=== PATIENT | female | born 1985 | race Caucasian/White ===

== ENCOUNTER 2019-01-01 21:50 | Emergency (ER) | payer MEDICAID, OTHER ==
[2019-01-01] MEDS ORDERED: HYDROCODONE/APAP 5/325MG TABLET PO ONE (22:25)
[2019-01-01] MEDS ORDERED: AMOXICILLIN/POTASSIUM CLAV 875MG/125MG TABLET PO ONE (22:25)
[2019-01-01] MEDS ORDERED: RABIES VACCINE (RABAVERT) 2.5 IU VIAL IM ONE (22:39)
[2019-01-01] MEDS ORDERED: RABIES IMMUNE GLOBULIN 150 UNIT/ML IM ONE (22:39)
--- NOTE | 2019-01-01 22:50 | Emergency Department Record ---
History of Present Illness - General Chief Complaint: Animal Bite Stated Complaint: CAT BITE Time Seen by Provider: 01/01/19 22:06 Source: Patient Mode of Arrival: Ambulatory Limitations: No limitations - History of Present Illness Initial Comments: pt was bitten multiple times by her parents cat. pts mother has dementia,her father has . pt was picking the cat up to take it to a snf when it attacked her. rabies status is unknown. cat cannot be found because pts sister wont tell her where it is. animal control has been notified. pt is choosing to start rabies as she states there is no way to find out the status of the cat MD Complaint: Animal bite Onset/Timin -: Minutes(s) Left: Forearm, Right: Forearm Animal: Cat Description: Household pet Mechanism: Bite, Scratch Context: Other Associated Symptoms: Bleeding - Related Data Previous Rx's Medication Instructions Recorded Cyclobenzaprine HCl [Flexeril] 5 mg PO TID PRN #15 tab 04/16/16 Amoxicillin/Potassium Clav 1 each PO BID #20 tablet 01/01/19 [Augmentin 875Mg/125Mg] Allergies Allergy/AdvReac Type Severity Reaction Status Date / Time Sulfa (Sulfonamide Allergy ANAPHYLAXIS Verified 01/01/19 22:03 Antibiotics) sulfamethoxazole Allergy ANAPHYLAXIS Verified 01/01/19 22:03 [From Bactrim] trimethoprim [From Bactrim] Allergy ANAPHYLAXIS Verified 01/01/19 22:03 Travel Screening - Travel/Exposure Within Last 30 Days Have you traveled within the last 30 days?: No - Travel/Exposure Within Last Year Have you traveled outside the [place] in the last year?: No - Additonal Travel Details Have you been exposed to anyone with a communicable illness?: No Review of Systems Reviewed: No additional complaints except as noted below Constitutional: Reports: As per HPI. Denies: Chills, Fever, Malaise, Night sweats, Weakness, Weight change Eyes: Reports: As per HPI. Denies: Eye discharge, Eye pain, Photophobia, Vision change ENT: Reports: As per HPI. Denies: Congestion, Dental pain, Ear pain, Epistaxis, Hearing loss, Throat pain Respiratory: Reports: As per HPI. Denies: Cough, Dyspnea, Hemoptysis, Stridor, Wheezes Cardiovascular: Reports: As per HPI. Denies: Arrhythmia, Chest pain, Dyspnea on exertion, Edema, Murmurs, Orthopnea, Palpitations, Paroxysmal nocturnal dyspnea, Rheumatic Fever, Syncope Endocrine: Reports: As per HPI. Denies: Fatigue, Heat or cold intolerance, Polydipsia, Polyuria Gastrointestinal: Reports: As per HPI. Denies: Abdominal pain, Constipation, Diarrhea, Hematemesis, Hematochezia, Melena, Nausea, Vomiting Genitourinary: Reports: As per HPI. Denies: Abnormal menses, Discharge, Dyspareunia, Dysuria, Frequency, Hematuria, Incontinence, Retention, Urgency Musculoskeletal: Reports: As per HPI. Denies: Arthralgia, Back pain, Gout, Joint swelling, Myalgia, Neck pain Skin: Reports: As per HPI. Denies: Bruising, Change in color, Change in hair/nails, Lesions, Pruritus, Rash Neurological: Reports: As per HPI. Denies: Abnormal gait, Confusion, Headache, Numbness, Paresthesias, Seizure, Tingling, Tremors, Vertigo, Weakness Psychiatric: Reports: As per HPI. Denies: Anxiety, Auditory hallucinations, Depression, Homicidal thoughts, Suicidal thoughts, Visual hallucinations Hematological/Lymphatic: Reports: As per HPI. Denies: Anemia, Blood Clots, Easy bleeding, Easy bruising, Swollen glands Past Medical History - SOCIAL HISTORY Smoking Status: Current every day smoker Alcohol Use: Rare Drug Use: None - RESPIRATORY Hx Respiratory Disorders: No - CARDIOVASCULAR Hx Cardio Disorders: No - NEURO Hx Neuro Disorders: No - GI Hx GI Disorders: No - Hx Genitourinary Disorders: No Comment:: "angry bladder" urgency - ENDOCRINE Hx Endocrine Disorders: No - MUSCULOSKELETAL Hx Musculoskeletal Disorders: No - PSYCH Hx Psych Problems: Yes Hx Anxiety: Yes Hx Depression: Yes - HEMATOLOGY/ONCOLOGY Hx Hematology/Oncology Disorders: No Family Medical History Any Significant Family History?: No Hx Cancer: Grandparents Physical Exam - General General Appearance: Alert, Oriented x3, Cooperative, Mild distress - Head Head exam: Normal inspection - Eye Eye exam: Normal appearance, PERRL, EOMI Pupils: Normal accommodation - ENT ENT exam: Normal exam, Mucous membranes moist, Normal external ear exam, Normal orophraynx Ear exam: Normal external inspection. negative: External canal tenderness Nasal Exam: Normal inspection. negative: Discharge, Sinus tenderness Mouth exam: Normal external inspection, Tongue normal Teeth exam: Normal inspection. negative: Dental caries Throat exam: Normal inspection. negative: Tonsillar erythema, Tonsillar exudate - Neck Neck exam: Normal inspection, Full ROM. negative: Tenderness - Respiratory Respiratory exam: Normal lung sounds bilaterally. negative: Respiratory distress - Cardiovascular Cardiovascular Exam: Regular rate, Normal rhythm, Normal heart sounds - GI/Abdominal GI/Abdominal exam: Soft, Normal bowel sounds. negative: Tenderness - Rectal Rectal exam: Deferred - exam: Deferred - Extremities Extremities exam: Normal inspection, Full ROM, Normal capillary refill. negative: Tenderness - Back Back exam: Reports: Normal inspection, Full ROM. Denies: Muscle spasm, Rash noted, Tenderness - Neurological Neurological exam: Alert, CN II-XII intact, Normal gait, Oriented X3 - Psychiatric Psychiatric exam: Normal affect, Normal mood - Skin Skin exam: Dry, Intact, Normal color, Warm Type of lesion: abrasion, Bite/sting, Laceration Course Vital Signs 01/01/19 21:55 Temperature 98.2 F Pulse Rate [ 81 Pulse Ox Probe] Respiratory 20 Rate Blood Pressure 126/79 [Left Arm] Pulse Ox 100 w - Reevaluation(s) Reevaluation #1: 01/01/19 22:53 area was thoroughly cleaned and rig and vaccine given per pts wishes since she believes status of cat cannot be found Reevaluation #2: 01/01/19 22:58 xray neg Disposition Disposition: Discharge Clinical Impression: Cat bite involving extremity, Rabies exposure Disposition: Home, Self-Care Condition: (1) Good Instructions: Animal Bite (ED), Rabies Vaccine (ED), Rabies Immune Globulin (By injection) Additional Instructions: follow up with family doctor. return sooner if worse. return on days 3,7,14 for rabies vaccine Prescriptions: Amoxicillin/Potassium Clav [Augmentin 875Mg/125Mg] 1 each PO BID #20 tablet Forms: Patient Portal Access, Return to Work/School Quality - Quality Measures Quality Measures: N/A - Blood Pressure Screening Does Patient Have Any of the Following: No Blood Pressure Classification: Pre-Hypertensive BP Reading Systolic Measurement: 126 Diastolic Measurement: 79 Screening for High Blood Pressure: < Pre-Hypertensive BP, F/U Documented > [G8950] Pre-Hypertensive Follow-up Interventions: Follow-up with rescreen every year.
--- NOTE | 2019-01-06 06:52 | RADIOLOGY REPORT ---
EXAM: FOREARM, RIGHT HISTORY: MULTIPLE CAT BITES. COMPARISON: Right elbow 04/16/16. TECHNIQUE: Two views of the right forearm. FINDINGS: No clear cortical or trabecular disruption identified. No dislocation. No elbow effusion. No persistent radiopaque foreign body visualized. IMPRESSION: NO ACUTE ABNORMALITY EVIDENT RADIOGRAPHICALLY AT THIS TIME. JOB NUMBER: [id number] MTDD
== END 2019-01-01 23:53 | disposition home or self-care (01) ==
LOC: ER 21:50
DX: S41.152A Open bite of left upper arm, initial encounter (principal); S41.151A Open bite of right upper arm, initial encounter; W55.01XA Bitten by cat, initial encounter; Z20.3 Contact with and (suspected) exposure to rabies; F17.210 Nicotine dependence, cigarettes, uncomplicated
CPT/HCPCS: 90375; 90675; 96372; 99283; 99284

== ENCOUNTER 2019-03-11 20:25 | Emergency (ER) | payer OTHER ==
[2019-03-11] MEDS ORDERED: HYDROCODONE/APAP 5/325MG TABLET PO ONE (20:35)
--- NOTE | 2019-03-11 20:41 | Emergency Department Record ---
History of Present Illness - General Chief complaint: Female Urogenital Problem Stated complaint: BLOOD IN URINE Time Seen by Provider: 03/11/19 20:27 Source: Patient Mode of Arrival: Ambulatory Limitations: No limitations - History of Present Illness Initial comments: 33 yo female presents with blood in the urine on and off over the last 1.5 weeks. She has some flank pain at times as well. No fever. No retention. No burning or frequency. She reports a history of the same in the past with a workup with urology in [place]. She had cystoscopy at that time. No formal diagnosis. No history of renal stones. No cancer. No clots in the urine. MD Complaint: Dysuria, Other (Hematuria) -: Week(s) (1.5) Location: Other Radiation: R flank Severity: Moderate Severity scale (1-10): 7 Quality: Aching Consistency: Intermittent Improves with: None Worsens with: None Patient : No Associated Symptoms: Denies other symptoms - Related Data Home Medications Medication Instructions Recorded Confirmed Last Taken No Home Med [NO HOME MEDS] 03/11/19 03/11/19 Unknown Allergies Allergy/AdvReac Type Severity Reaction Status Date / Time Sulfa (Sulfonamide Allergy ANAPHYLAXIS Verified 03/11/19 20:35 Antibiotics) sulfamethoxazole Allergy ANAPHYLAXIS Verified 03/11/19 20:35 [From Bactrim] trimethoprim [From Bactrim] Allergy ANAPHYLAXIS Verified 03/11/19 20:35 Travel Screening - Travel/Exposure Within Last 30 Days Have you traveled within the last 30 days?: No - Travel/Exposure Within Last Year Have you traveled outside the [place] in the last year?: No - Additonal Travel Details Have you been exposed to anyone with a communicable illness?: No - Travel Symptoms Symptom Screening: None Review of Systems Constitutional: Denies: Chills, Fever, Malaise, Weakness Eyes: Denies: Eye discharge, Eye pain, Photophobia, Vision change ENT: Reports: Throat pain. Denies: Congestion Respiratory: Reports: Cough. Denies: Dyspnea, Hemoptysis, Stridor, Wheezes Cardiovascular: Denies: Chest pain, Dyspnea on exertion, Palpitations, Syncope Endocrine: Denies: Fatigue, Polydipsia, Polyuria Gastrointestinal: Denies: Abdominal pain, Diarrhea, Nausea, Vomiting Genitourinary: Reports: Hematuria. Denies: Dysuria, Frequency, Retention, Urgency Musculoskeletal: Reports: Back pain. Denies: Arthralgia, Myalgia Skin: Denies: Bruising, Change in color, Rash Neurological: Denies: Headache Psychiatric: Denies: Anxiety Hematological/Lymphatic: Denies: Easy bleeding, Easy bruising Past Medical History - SOCIAL HISTORY Smoking Status: Current every day smoker Alcohol Use: Occasional Drug Use: None - RESPIRATORY Hx Respiratory Disorders: No - CARDIOVASCULAR Hx Cardio Disorders: No - NEURO Hx Neuro Disorders: No - GI Hx GI Disorders: No - Hx Genitourinary Disorders: Yes Comment:: "angry bladder" urgency, renal insufficiency. - ENDOCRINE Hx Endocrine Disorders: No - MUSCULOSKELETAL Hx Musculoskeletal Disorders: Yes - PSYCH Hx Psych Problems: Yes Hx Anxiety: Yes Hx Depression: Yes - HEMATOLOGY/ONCOLOGY Hx Hematology/Oncology Disorders: No Family Medical History Any Significant Family History?: Yes Hx Cancer: Grandparents Physical Exam - General General Appearance: Alert, Oriented x3, Cooperative, No acute distress Limitations: No limitations - Head Head exam: Atraumatic, Normocephalic, Normal inspection - Eye Eye exam: Normal appearance. negative: Conjunctival injection, Scleral icterus - ENT ENT exam: Normal exam, Mucous membranes moist, Normal orophraynx. negative: Mucous membranes dry Ear exam: Normal external inspection Nasal Exam: Normal inspection Mouth exam: Normal external inspection Teeth exam: Normal inspection Throat exam: Normal inspection. negative: Tonsillar erythema, Tonsillomegaly, Tonsillar exudate, R peritonsillar mass, L peritonsillar mass - Neck Neck exam: Normal inspection, Full ROM, Lymphadenopathy (small left upper anterior cervical node, soft and mobile) - Respiratory Respiratory exam: Normal lung sounds bilaterally. negative: Accessory muscle use, Decreased breath sounds, Prolonged expiratory, Respiratory distress, Rhonchi, Stridor, Wheezes - Cardiovascular Cardiovascular Exam: Regular rate, Normal rhythm, Normal heart sounds. negative: Diastolic murmur, Systolic murmur Peripheral Pulses: 2+: Radial (R), Radial (L) - GI/Abdominal GI/Abdominal exam: Soft. negative: Tenderness - Rectal Rectal exam: Deferred - exam: Deferred - Extremities Extremities exam: Normal inspection - Back Back exam: Reports: CVA tenderness (R) (mild). Denies: CVA tenderness (L), Muscle spasm, Paraspinal tenderness, Tenderness - Neurological Neurological exam: Alert, Oriented X3 - Psychiatric Psychiatric exam: Normal affect, Normal mood. negative: Agitated, Anxious - Skin Skin exam: Dry, Intact, Normal color, Warm Course Vital Signs 03/11/19 20:27 Temperature 98.4 F Pulse Rate 78 Respiratory 20 Rate Blood Pressure 138/99 Pulse Ox 100 Reviewed. No abnormalities - Reevaluation(s) Reevaluation #1: 03/11/19 20:56 The CBC is normal 03/11/19 20:57 The UA is negative. No blood or signs of infection The HCG is negative The vitals are normal. The labs are normal. I discussed with her imaging options. I do not recommend CT at this time given the normal findings. I recommend a return during the day or follow up with PCP for a renal US if the the pain persists. We discussed radiation exposure risk and benefits. Risk outweighs benefit currently. US without radiation exposure is recommended. 03/11/19 21:16 BMP is normal We discussed follow up, reasons to return, the labs and UA ( a copy of provided). Medical Decision Making - Lab Data Result diagrams: 03/11/19 20:45 03/11/19 20:45 Disposition Disposition: Discharge Clinical Impression: Hematuria Qualifiers: Hematuria type: unspecified type Qualified Code(s): R31.9 - Hematuria, unspecified Disposition: Home, Self-Care Condition: (1) Good Instructions: Hematuria (ED) Additional Instructions: Call for a new family doctor for the next available follow up appointment Return to the ER for a recheck if worse, any new concerns or questions If the pain persists return for re-evaluation and possible renal ultrasound Referrals: NITESH PIMENTEL [MEDICAL DOCTOR] - Forms: Patient Portal Access Time of Disposition: 21:00 Quality - Quality Measures Quality Measures: N/A - Blood Pressure Screening Does Patient Have Any of the Following: No Blood Pressure Classification: Hypertensive Reading Systolic Measurement: 138 Diastolic Measurement: 99 Screening for High Blood Pressure: < Pre-Hypertensive BP, F/U Documented > [G8950] Pre-Hypertensive Follow-up Interventions: Referral to alternative/primary care provider.
[2019-03-11 20:51] LABS: ABSOLUTE NEUTROPHIL COUNT 5.74; BASO % 0.3 % (0-6); EOS % 2.4 % (0-6); GRAN % 58.5 % (47-80); HEMATOCRIT 41.9 % (35.0-47.0); LYMPH % 32.1 % (16-45); MEAN CELL VOLUME 81.7 fl (81-97); MEAN CORPUSCULAR HEMOGLOBIN 27.3 pg (27-33); MEAN CORPUSCULAR HGB CONC 33.4 g/dl (32-36); MEAN PLATELET VOLUME 9.8 fl (7.4-10.4); MONO % 6.7 % (0-9); PLATELET COUNT 317 K/uL (130-400); RED BLOOD COUNT 5.13 M/uL (3.80-5.40); RED CELL DISTRIBUTION WIDTH 13.2 % (11.5-14.5); WHITE BLOOD COUNT W/O DIFF 9.8 K/uL (4.2-12.2)
[2019-03-11 20:53] LABS: URINE APPEARANCE CLEAR; URINE BILIRUBIN NEGATIVE (NEGATIVE); URINE BLOOD NEGATIVE (NEGATIVE); URINE COLOR YELLOW; URINE GLUCOSE (UA) NEGATIVE (NEGATIVE); URINE KETONE NEGATIVE (NEGATIVE); URINE LEUKOCYTE ESTERASE NEGATIVE (NEGATIVE); URINE NITRITE NEGATIVE (NEGATIVE); URINE PROTEIN NEGATIVE (NEGATIVE); URINE UROBILINOGEN 0.2 E.U./dL (0.20 - 1.00)
[2019-03-11 20:56] LABS: HCG,QUALITATIVE URINE NEGATIVE (NEGATIVE)
[2019-03-11 21:07] LABS: BLOOD UREA NITROGEN 9 mg/dL (6-20); CREATININE 0.5 mg/dL (0.5-0.9); EST GLOMERULAR FILTRATION RATE > 60 mL/min
[2019-03-11 21:10] LABS: GLUCOSE,RANDOM 115 mg/dL (74-109)
== END 2019-03-11 21:24 | disposition home or self-care (01) ==
LOC: ER 20:25
DX: R31.9 Hematuria, unspecified (principal); R30.0 Dysuria; F17.210 Nicotine dependence, cigarettes, uncomplicated
CPT/HCPCS: 80048; 81003; 81025; 85025; 99284

== ENCOUNTER 2019-04-08 17:06 | Emergency (ER) | payer SELFPAY ==
[2019-04-08] MEDS ORDERED: CYCLOBENZAPRINE 10MG TABLET PO ONE (17:17)
[2019-04-08] MEDS ORDERED: HYDROCODONE/APAP 5/325MG TABLET PO ONE (17:17)
[2019-04-08] MEDS ORDERED: KETOROLAC 30 MG/ML VIAL IM ONE (17:17)
--- NOTE | 2019-04-08 17:24 | Emergency Department Record ---
History of Present Illness - General Chief Complaint: Back Pain/Injury Stated Complaint: BACK PAIN Time Seen by Provider: 04/08/19 17:16 Source: Patient, Family Mode of Arrival: Ambulatory Limitations: No limitations - History of Present Illness Initial Comments: 33 yo female presents with low back pain since yesterday. She states she works at the [employer]. She was lifting a 150 pound package and felt a pain in her low back. The pain is mostly mid line and low. No numbness, weakness, or radiating pain down the leg. She has had sciatica like symptoms in the past but denies any since the injury lifting. No other recent illness. No changes in bowel or bladder function. No history of back surgery. She did have XR's 04/16/16 demonstrating a mild stable L1 wedging. No current PCP MD Complaint: Back pain, Back injury Onset/Timin -: Days(s) Similar Symptoms Previously: No Place: Home Radiation: None Severity scale (1-10): 7 Quality: Aching, Sharp Consistency: Constant Improves With: None Worsens With: None Context: While lifting Associated Symptoms: Denies other symptoms - Related Data Previous Rx's Medication Instructions Recorded Cyclobenzaprine HCl [Flexeril] 10 mg PO TID #20 tablet 04/08/19 Methylprednisolone [Medrol Dose 4 mg PO DAILY #1 tab.ds.pk 04/08/19 Pack] Allergies Allergy/AdvReac Type Severity Reaction Status Date / Time Sulfa (Sulfonamide Allergy ANAPHYLAXIS Verified 03/11/19 20:35 Antibiotics) sulfamethoxazole Allergy ANAPHYLAXIS Verified 03/11/19 20:35 [From Bactrim] trimethoprim [From Bactrim] Allergy ANAPHYLAXIS Verified 03/11/19 20:35 Travel Screening - Travel/Exposure Within Last 30 Days Have you traveled within the last 30 days?: No Review of Systems Constitutional: Denies: Chills, Fever, Malaise, Weakness Eyes: Denies: Eye discharge ENT: Denies: Congestion, Throat pain Respiratory: Denies: Cough, Dyspnea, Wheezes Cardiovascular: Denies: Chest pain, Palpitations, Syncope Endocrine: Denies: Fatigue Gastrointestinal: Denies: Abdominal pain, Diarrhea, Nausea, Vomiting Genitourinary: Denies: Dyspareunia, Dysuria Musculoskeletal: Reports: Back pain, Myalgia. Denies: Arthralgia Skin: Denies: Bruising, Change in color, Rash Neurological: Denies: Abnormal gait, Headache, Numbness, Tingling, Tremors, Vertigo, Weakness Psychiatric: Denies: Anxiety Hematological/Lymphatic: Denies: Easy bleeding, Easy bruising Past Medical History - SOCIAL HISTORY Smoking Status: Current every day smoker - RESPIRATORY Hx Respiratory Disorders: No - CARDIOVASCULAR Hx Cardio Disorders: No - NEURO Hx Neuro Disorders: No - GI Hx GI Disorders: No - Hx Genitourinary Disorders: Yes Comment:: "angry bladder" urgency, renal insufficiency. - ENDOCRINE Hx Endocrine Disorders: No - MUSCULOSKELETAL Hx Musculoskeletal Disorders: Yes - PSYCH Hx Psych Problems: Yes Hx Anxiety: Yes Hx Depression: Yes - HEMATOLOGY/ONCOLOGY Hx Hematology/Oncology Disorders: No Family Medical History Any Significant Family History?: Yes Hx Cancer: Grandparents Physical Exam - General General Appearance: Alert, Oriented x3, Cooperative, No acute distress Limitations: No limitations - Head Head exam: Atraumatic, Normal inspection - Eye Eye exam: Normal appearance. negative: Conjunctival injection - ENT ENT exam: Normal exam Ear exam: Normal external inspection Nasal Exam: Normal inspection Mouth exam: Normal external inspection - Neck Neck exam: Normal inspection - Respiratory Respiratory exam: Normal lung sounds bilaterally. negative: Respiratory distress - Cardiovascular Cardiovascular Exam: Regular rate, Normal rhythm, Normal heart sounds - GI/Abdominal GI/Abdominal exam: Soft. negative: Tenderness - Rectal Rectal exam: Deferred - exam: Deferred - Extremities Extremities exam: Normal inspection, Full ROM, Other (Negatie straight leg raise). negative: Calf tenderness, Pedal edema, Tenderness - Back Back exam: Reports: Normal inspection, Muscle spasm, Paraspinal tenderness, Tenderness, Vertebral tenderness - Neurological Neurological exam: Alert, Motor sensory deficit, Oriented X3 - Psychiatric Psychiatric exam: Normal affect, Normal mood - Skin Skin exam: Dry, Intact, Normal color, Warm Course Vital Signs 04/08/19 17:12 Temperature 99.1 F Pulse Rate 85 Respiratory 18 Rate Blood Pressure 139/99 Pulse Ox 99 - Reevaluation(s) Reevaluation #1: 04/08/19 18:12 The lumbar XR was reviewed and copy presented to the patient Stable degenerative changes. No acute process. Disposition Disposition: Discharge Clinical Impression: Lumbar strain Qualifiers: Encounter type: initial encounter Qualified Code(s): S39.012A - Strain of muscle, fascia and tendon of lower back, initial encounter Disposition: Home, Self-Care Condition: (1) Good Instructions: Low Back Strain (ED) Additional Instructions: Call for a new family doctor for the next available follow up appointment Return to the ER for a recheck if worse, any new concerns or questions Take the prescriptions provided as directed Prescriptions: Cyclobenzaprine HCl [Flexeril] 10 mg PO TID #20 tablet Methylprednisolone [Medrol Dose Pack] 4 mg PO DAILY #1 tab.ds.pk Referrals: BARRY MESA M.D. [MEDICAL DOCTOR] - Forms: Patient Portal Access Time of Disposition: 18:12 Quality - Quality Measures Quality Measures: N/A - Blood Pressure Screening Does Patient Have Any of the Following: No Blood Pressure Classification: Hypertensive Reading Systolic Measurement: 139 Diastolic Measurement: 99 Screening for High Blood Pressure: < Pre-Hypertensive BP, F/U Documented > [G8950] Pre-Hypertensive Follow-up Interventions: Referral to alternative/primary care provider.
--- NOTE | 2019-04-08 17:57 | RADIOLOGY REPORT ---
EXAMINATION: Lumbar Spine Two or Three Views EXAM DATE: 04/08/2019 5:37 PM TECHNIQUE: AP and lateral views INDICATION: lumbar pain with lifting COMPARISON: Lumbar spine radiographs 04/16/2016 ENCOUNTER: Initial FINDINGS: 5 lumbar segments with mild dextroconvex curvature. Mild degenerative disc disease from T11-12 to L1 to. Sacralized transitional segment at the lumbosacral junction. No acute fracture. Mild wedge deform ities at T11 and T12, unchanged. IMPRESSION: 1. Mild dextroconvex curvature of the lower lumbar spine with mild multilevel degenerative disc disea se. No acute process of the lumbar spine identified. 2. Transitional segment at the lumbosacral junction Dictated by: Darrius Alvarenga MD on 04/08/2019 5:51 PM. .
== END 2019-04-08 18:26 | disposition home or self-care (01) ==
LOC: ER 17:06
DX: S39.012A Strain of muscle, fascia and tendon of lower back, initial encounter (principal); X50.0XXA Overexertion from strenuous movement or load, initial encounter; Y92.242 Post office as the place of occurrence of the external cause; Y99.0 Civilian activity done for income or pay; F17.210 Nicotine dependence, cigarettes, uncomplicated
CPT/HCPCS: 72100; 96372; 99284; J1885

== ENCOUNTER 2019-05-10 15:58 | Emergency (ER) | payer OTHER ==
[2019-05-10] MEDS ORDERED: METHYLPREDNISOLONE PF 125MG/VIAL IM ONE (16:52)
--- NOTE | 2019-05-10 17:19 | Emergency Department Record ---
History of Present Illness - General Chief Complaint: Cough Stated Complaint: RESPIRATORY/BACK/SKIN RASH Time Seen by Provider: 05/10/19 16:27 Source: Patient Mode of Arrival: Ambulatory Limitations: No limitations - History of Present Illness Initial Comments: The patient is here due to a dry cough and congestion for 3 days. She denies any CP, SOB, CHRISS, fever, chills, or LUNA. The patient does have a hx of chronic back pain and it has been flaring up recently. There is no pain radiation down the legs and no leg numbness, weakness, or any bowel or bladder issues. The patient states the entire family is ill at home with the same respiratory illness. MD Complaint: Cough, Nasal congestion, Rhinorrhea Onset/Timin -: Days(s) - Related Data Previous Rx's Medication Instructions Recorded Albuterol Sulfate [Proair Hfa] 2 puff IH QID PRN #1 inhaler 05/10/19 Prednisone [Prednisone 20Mg] 40 mg PO DAILY #8 tab 05/10/19 Allergies Allergy/AdvReac Type Severity Reaction Status Date / Time Sulfa (Sulfonamide Allergy ANAPHYLAXIS Verified 05/10/19 16:35 Antibiotics) sulfamethoxazole Allergy ANAPHYLAXIS Verified 05/10/19 16:35 [From Bactrim] trimethoprim [From Bactrim] Allergy ANAPHYLAXIS Verified 05/10/19 16:35 Travel Screening - Travel/Exposure Within Last 30 Days Have you traveled within the last 30 days?: No - Travel/Exposure Within Last Year Have you traveled outside the [place] in the last year?: No - Additonal Travel Details Have you been exposed to anyone with a communicable illness?: No - Travel Symptoms Symptom Screening: None Review of Systems Constitutional: Reports: Malaise. Denies: Chills, Fever Eyes: Denies: Eye discharge ENT: Reports: Congestion Respiratory: Reports: Cough. Denies: Dyspnea Past Medical History - SOCIAL HISTORY Smoking Status: Current every day smoker Alcohol Use: None Drug Use: None - RESPIRATORY Hx Respiratory Disorders: No - CARDIOVASCULAR Hx Cardio Disorders: No - NEURO Hx Neuro Disorders: No - GI Hx GI Disorders: No - Hx Genitourinary Disorders: Yes Comment:: "angry bladder" urgency, renal insufficiency. - ENDOCRINE Hx Endocrine Disorders: No Hx Diabetes: No Hx Thyroid Disease: No - MUSCULOSKELETAL Hx Musculoskeletal Disorders: Yes - PSYCH Hx Psych Problems: Yes Hx Anxiety: Yes Hx Depression: Yes - HEMATOLOGY/ONCOLOGY Hx Hematology/Oncology Disorders: No Family Medical History Any Significant Family History?: Yes Hx Cancer: Grandparents Physical Exam - General General Appearance: Alert, Oriented x3, Cooperative, No acute distress - Head Head exam: Atraumatic, Normocephalic, Normal inspection - Eye Eye exam: Normal appearance, PERRL - ENT ENT exam: Normal exam, Mucous membranes moist, Normal external ear exam, Normal orophraynx, TM's normal bilaterally Throat exam: Normal inspection. negative: Tonsillar erythema, Tonsillar exudate - Neck Neck exam: Normal inspection, Full ROM. negative: Tenderness - Respiratory Respiratory exam: Normal lung sounds bilaterally. negative: Respiratory distress - Cardiovascular Cardiovascular Exam: Regular rate, Normal rhythm, Normal heart sounds - GI/Abdominal GI/Abdominal exam: Soft, Normal bowel sounds. negative: Tenderness - Extremities Extremities exam: Normal inspection, Full ROM, Normal capillary refill. negative: Tenderness - Neurological Neurological exam: Alert, Normal gait, Oriented X3, Reflexes normal. negative: Abnormal gait, Altered, Motor sensory deficit - Skin Skin exam: negative: Rash Course Vital Signs 05/10/19 16:26 Temperature 97.8 F Pulse Rate 70 Respiratory 18 Rate Blood Pressure 136/77 Pulse Ox 99 - Reevaluation(s) Reevaluation #1: I did explain to the patient that it appears she has a viral URI. She is to see her PCP next week for recheck if not better and return to the ER for any worsening symptoms. 05/10/19 17:25 Disposition Disposition: Discharge Clinical Impression: URI, acute Disposition: Home, Self-Care Condition: (2) Stable Instructions: Upper Respiratory Infection (ED) Additional Instructions: Please use the Inhaller and oral Steroids as directed and please use an OTC cough and cold medicine. Please see your doctor for recheck next week and return to the ER for any worsening issues. Prescriptions: Prednisone [Prednisone 20Mg] 40 mg PO DAILY #8 tab Albuterol Sulfate [Proair Hfa] 2 puff IH QID PRN #1 inhaler PRN Reason: Cough And Difficulty Breathing Forms: Patient Portal Access Time of Disposition: 17:28 Quality - Quality Measures Quality Measures: N/A - Blood Pressure Screening View Details: Yes Does Patient Have Any of the Following: No Blood Pressure Classification: Pre-Hypertensive BP Reading Systolic Measurement: 136 Diastolic Measurement: 77 Screening for High Blood Pressure: < Pre-Hypertensive BP, F/U Documented > [[id number]] Pre-Hypertensive Follow-up Interventions: Referral to alternative/primary care provider.
== END 2019-05-10 17:39 | disposition home or self-care (01) ==
LOC: ER 15:58
DX: J06.9 Acute upper respiratory infection, unspecified (principal); R05 Cough; F17.210 Nicotine dependence, cigarettes, uncomplicated; M54.9 Dorsalgia, unspecified; G89.29 Other chronic pain
CPT/HCPCS: 96372; 99284; J2930